=== PATIENT | male | born 1975 ===

== ENCOUNTER → 2021-04-23 13:17 | Outpatient (CLI) | payer OTHER, SELFPAY ==
[2021-04-23 17:42] LABS: COVID19 -Nasal RAPID Negative (Negative)
== END ==
PROVIDERS: Visit Provider Nurse Practitioner Family
DX: Z20.822 Contact with and (suspected) exposure to COVID-19 (principal)
CPT/HCPCS: 87635

== ENCOUNTER 2021-04-24 06:55 | Day surgery (SDC) | payer OTHER, SELFPAY ==
--- NOTE | 2021-04-24 | PATH_ITS ---
[facility] Accession Number: [id number] . 01 Material submitted: . small bowel - TERMINAL ILEUM POLYP . 01 Clinical history: . SDC . 02 Diagnosis: Terminal Ileum, Polyp, Biopsy: Ileal mucosa with reactive lymphoid hyperplasia. Negative for dysplasia or malignancy. [facility] 04/27/2021 1047 Local . 02 Electronically signed: . Leo Madrid MD, PhD, Pathologist NPI- [id number] . 01 Gross description: . TERMINAL ILEUM POLYP: Received in formalin are 2 fragment(s) of yeboah, soft tissue measuring 0.4 x 0.3 x 0.3 cm to 0.3 x 0.3 x 0.3 cm submitted entirely in 1 cassette(s) /Q 04/25/2021 0840 Local . 02 Pathologist provided ICD-10: Z12.11 . 02 CPT . 862300 Performed at: 01 [facility] [address] [facility], [place], [place] [id number] MD Shalom Munoz MD Phone: [phone] Performed at: 02 [facility] [address] [place], [place] [id number] MD Lori Torres MD Phone: [phone]
[2021-04-24 07:10] VITALS: BP 113/68; PULSE 64; RESP 16; TEMP 36.1; O2SAT 96; BMI 31.4
[2021-04-24] MEDS: SODIUM CHLORIDE 0.9% 1,000 ML 84 ML IV (07:27)
--- NOTE | 2021-04-24 07:51 | PM.HP.1 ---
History of Present Illness History of Present Illness Date Patient Seen: 04/24/21 Time Patient Seen: 07:51 Chief complaint: SDC Narrative: I reviewed Dr. Fagan's note. No major changes. Patient History Medical History Recurrent dislocation, left shoulder Surgical History H/O umbilical hernia repair Family & Social History Social History: household members spouse Tobacco & Substance use: Smoking Status Former smoker alcohol intake current Substance Use Type does not use Meds Home Medications and Allergies Home Medications Medication Instructions Recorded Confirmed Type esomeprazole magnesium 40 mg 40 mg PO QDAY #0 02/20/16 History capsule,delayed release (Nexium) multivitamin (Multiple Vitamins) 1 tab PO QDAY #0 tab 02/20/16 History Allergies Allergy/AdvReac Type Severity Reaction Status Date / Time gluten Allergy Verified 04/24/21 07:05 Review of Systems Review of Systems ROS: Yes All systems reviewed with the patient and are negative except as otherwise documented Exam Vital Signs (past 8 hours): - 04/24/21 07:10 Temperature 97 F L Pulse Rate 64 Respiratory Rate 16 Blood Pressure 113/68 Pulse Oximetry 96 Oxygen Delivery Method Room Air Const General: cooperative and comfortable Orientation: alert HENMT Head: normocephalic Ears: external ears normal Nose: external nose normal Face and sinus: normal facial exam Mouth: oral mucosae normal Eyes General: appearance normal, both eyes and all related structures Neck Neck: normal visual inspection Chest Chest: normal inspection of the chest Resp Effort & Inspection: normal respiratory effort Cardio Rate: regular rate GI Inspection: normal to inspection Skin General: no rashes or lesions noted and No jaundice Neuro General: patient alert and moves all extremities Cognition: normal cognition Speech: speech normal Extrem General: no pedal edema Psych Appearance: grossly normal Assessment & Plan Assessment & Plan narrative: 46-year-old male has been experiencing approximately 4 months of left-sided abdominal discomfort. He is indicated for colon cancer screening. Colonoscopy is pursued today. Time Spent With Patient Critical Care time: I spent a total of [] minutes of critical care time on this patient's care today; this time is exclusive of procedural time.
--- NOTE | 2021-04-24 07:55 | PM.PREOP ---
Pre-operative Note COVID-19 COVID-19 status: Negative Result date/Date tested (Pos, Neg/Pending): 04/23/21 Interval Note History & Physical reviewed/Exam performed by Physician: Yes Changes to H&P: No ASA Class (for procedural sedation): I
--- NOTE | 2021-04-24 08:18 | PM.OP.COLON ---
Operative Date/Time/Diagnoses Date of procedure: 04/24/21 Time of procedure: 08:19 Pre-op diagnosis: Left-sided abdominal pain x4 months indicated for colon cancer screening Post-op diagnosis: same Procedure & Clinicians Study performed: Colonoscopy with biopsies Same procedure as scheduled: Yes Indications: Colon cancer screening. Left-sided abdominal pain x4 months Surgeon: Andres Cody Procedure Notes SCOAP/Timeout: Done Procedure in detail: After the risks and benefits were explained, written and verbal informed consent was obtained. The patient was brought into the procedure room and placed into the left lateral decubitus position. Please see nurse teletypewriter installer sedation notes. Digital rectal examination was accomplished. The scope was introduced into the patient and advanced under direct visualization to the cecum as identified by the appendiceal orifice and ileocecal valve. The scope was slowly withdrawn to carefully examine the mucosa for any defects or lesions. Comprehensive imaging was accomplished throughout the rectum including the dentate line. The colon was decompressed, the scope was then removed from the patient who tolerated the procedure well. Adult colonoscope Bowel prep adequate Scope withdrawal time: 8 minutes Sedation minutes: 26 Complications: none Impression: Patient had a slightly challenging medication with some scope looping after the tip of the scope was navigated around splenic flexure. That said I did not see any sign of inflammation no obstructing pathology no significant polyps or mass lesions throughout. The terminal ileum was interrogated and appeared moderately nodular. Multiple biopsies were therefore acquired from the ileal mucosa for histopathologic analysis. Endoscopic diagnosis 1. Nodular terminal ileum 2. Otherwise visually unremarkable colonoscopy Post-procedure Plan for aftercare: 1. Await histopathology 2. Repeat colon cancer screening 10 years time. 3. No findings were identified today to account for the patient's left-sided symptoms. I would therefore recommend CT scan. Disposition: PACU
[2021-04-24 08:23] VITALS: BP 92/47; PULSE 61; RESP 12; TEMP 36.4; O2SAT 92
[2021-04-24 08:28] VITALS: BP 99/64; PULSE 64; RESP 14; O2SAT 92
[2021-04-24 08:32] VITALS: BP 102/67; PULSE 62; RESP 16; O2SAT 95
[2021-04-24 08:37] VITALS: BP 90/49; PULSE 711; RESP 4; O2SAT 95
[2021-04-24 08:45] VITALS: BP 113/68; PULSE 64; RESP 16; TEMP 36.1; O2SAT 97
== END 2021-04-24 08:55 | disposition home or self-care (01) ==
PROVIDERS: Referring Provider Internal Medicine Gastroenterology; Visit Provider Internal Medicine Gastroenterology
PROC: 0DJD8ZZ Inspection of Lower Intestinal Tract, Via Natural or Artificial Opening Endoscopic (ICD-10-PCS; CPT 45378; principal; 2021-04-24 08:00)
DX: R10.9 Unspecified abdominal pain (principal); K21.9 Gastro-esophageal reflux disease without esophagitis
CPT/HCPCS: 45378; J2704

== ENCOUNTER 2022-05-08 09:22 | Emergency (ER) | payer OTHER, SELFPAY ==
[2022-05-08 09:41] VITALS: BP 128/87; PULSE 71; RESP 15; TEMP 36.6; O2SAT 99; BMI 32.7
[2022-05-08] MEDS: predniSONE 20 MG TABLET 60 MG PO (10:00)
[2022-05-08] MEDS: diphenhydrAMINE 25 MG TABLET PO (10:00)
[2022-05-08 12:50] VITALS: BP 129/73; PULSE 73; RESP 18; O2SAT 98
--- NOTE | 2022-05-08 13:29 | ED_ITS ---
HPI - Allergic Reaction <CHUCKIE Kimball - Last Filed: 05/08/22 14:19> General Chief complaint: Allergic Reaction Stated complaint: Blisters on face Time Seen by Provider: 05/08/22 13:04 Source: patient Mode of arrival: Ambulatory History of Present Illness HPI narrative: This is a 47-year-old male who presents to the emergency department with symptoms of an allergic reaction with hives that started approximately 8 hours after he took meloxicam for the 1st time. States it was just prescribed to him for arthritic knee pain. He has tolerated ibuprofen in the past, he tolerates aspirin, states that he is gluten intolerant and has not allergy to gluten. States that his symptoms started approximately 7-8 hours afterwards with hives around his face denies any intraoral swelling, had hives on his arms and legs as well. Denies any shortness of breath, coughing, swelling of his mouth or lips. Denies history of allergy like this in the past. States that he took Benadryl last night in his symptoms approved but this morning he had hives return and they were on his whole-body. Patient denies taking any blood pressure medications including lisinopril. Known history of allergy to: Gluten Related Data Home Medications Medication Instructions Recorded Confirmed esomeprazole magnesium 40 mg 40 mg PO QDAY ##0 02/20/16 capsule,delayed release (Nexium) multivitamin (Multiple Vitamins 1 tab PO QDAY #0 tabs 02/20/16 tablet) Previous Rx's Medication Instructions Recorded cetirizine 10 mg tablet 20 mg PO BEDTIME #30 tabs 05/08/22 epinephrine 0.1 mg/0.1 mL 0.1 ml IM Q5-15M #2 ea 05/08/22 injection, auto-injector hydroxyzine HCl 25 mg tablet 25 mg PO TID PRN itching #20 tabs 05/08/22 Allergies Allergy/AdvReac Type Severity Reaction Status Date / Time gluten Allergy Verified 05/08/22 09:41 meloxicam Allergy Verified 05/08/22 09:41 Review of Systems <CHUCKIE Kimball - Last Filed: 05/08/22 14:19> Review of Systems ROS Unobtainable: All systems reviewed & are unremarkable except as noted in HPI and below Patient History <CHUCKIE Kimball - Last Filed: 05/08/22 14:19> Medical History Recurrent dislocation, left shoulder Surgical History H/O umbilical hernia repair Social History household members: spouse Smoking Status: Former smoker alcohol intake: current Smoking Status: Former smoker Substance Use Type: does not use Exam <CHUCKIE Kimball - Last Filed: 05/08/22 14:19> Narrative Exam Narrative: Reviewed vitals signs and nursing notes. General: cooperative, comfortable, in no acute distress, well groomed HEENT: symmetrical facial expressions, moist mucous membranes, no intraoral edema, no posterior pharynx edema, mild hives have resolved on his face and upper chest and arms, still mildly blotchy. Without pruritus, airway grossly patent Cardiovascular: regular rate and rhythm, no peripheral edema, warm extremities Respiratory: normal effort, able to speak in complete sentences, without wheezing, stridor, or abnormal breath sounds. No retractions or tachypnea. GI: abdomen soft, nontender to palpation, nondistended, without masses, rebound tenderness or exquisite tenderness with exam. Without nausea vomiting MSK: moves all extremities, neurovascularly intact, no weakness, normal tone Skin: brisk capillary refill, without pallor or erythema Neuro: normal speech and cognition, A&O x3, ambulatory, clear speech Psych: mental status is grossly normal, congruent mood, normal affect, pleasant and cooperative Initial Vital Signs Initial Vital Signs: Vital Signs Temperature 97.8 F 05/08/22 09:41 Pulse Rate 71 05/08/22 09:41 Respiratory Rate 15 05/08/22 09:41 Blood Pressure 128/87 05/08/22 09:41 Pulse Oximetry 99 05/08/22 09:41 Oxygen Delivery Method 05/08/22 09:41 <Caitlin Watson DO - Last Filed: 05/11/22 07:15> Initial Vital Signs Initial Vital Signs: Vital Signs Temperature 97.8 F 05/08/22 09:41 Pulse Rate 71 05/08/22 09:41 Respiratory Rate 15 05/08/22 09:41 Blood Pressure 128/87 05/08/22 09:41 Pulse Oximetry 99 05/08/22 09:41 Oxygen Delivery Method 05/08/22 09:41 Course <CHUCKIE Kimball - Last Filed: 05/08/22 14:19> Orders Ordered: Discontinued Medications Diphenhydramine HCl (Diphenhydramine 25 Mg Tablet) 25 mg PO NOW ONE Stop: 05/08/22 09:48 Last Admin: 05/08/22 10:00 Dose: 25 mg Documented By: DIANE Prednisone (Prednisone 20 Mg Tablet) 60 mg PO NOW ONE Stop: 05/08/22 09:48 Last Admin: 05/08/22 10:00 Dose: 60 mg Documented By: DIANE Vital Signs Vital signs: Vital Signs - 8 hr 05/08/22 09:41 05/08/22 12:50 Temperature 97.8 F Pulse Rate 71 73 Respiratory Rate 15 18 Blood Pressure 128/87 129/73 Pulse Oximetry 99 98 Oxygen Delivery Method Room Air Room Air <Caitlin Watson DO - Last Filed: 05/11/22 07:15> Orders Ordered: Discontinued Medications Diphenhydramine HCl (Diphenhydramine 25 Mg Tablet) 25 mg PO NOW ONE Stop: 05/08/22 09:48 Last Admin: 05/08/22 10:00 Dose: 25 mg Documented By: DIANE Prednisone (Prednisone 20 Mg Tablet) 60 mg PO NOW ONE Stop: 05/08/22 09:48 Last Admin: 05/08/22 10:00 Dose: 60 mg Documented By: DIANE Vital Signs Vital signs: Vital Signs - 8 hr 05/08/22 09:41 05/08/22 12:50 Temperature 97.8 F Pulse Rate 71 73 Respiratory Rate 15 18 Blood Pressure 128/87 129/73 Pulse Oximetry 99 98 Oxygen Delivery Method Room Air Room Air MDM - Allergic Reaction <CHUCKIE Kimball - Last Filed: 05/08/22 14:19> MDM Narrative Medical decision making narrative: This patient presents with symptoms consistent with acute hypersensitivity reaction, likely acute allergic reaction following meloxicam use for the 1st time. States that he has never had a medication in his class before and he does tolerate ibuprofen and aspirin without any allergy. He has history of allergy to gluten. Primary symptom was urticaria. Symptoms improved with Benadryl Presentation not consistent with acute anaphylaxis (lack of pulmonary, dermatologic, cardiovascular or GI symptoms, lack of hypotension or exposure to known allergen), angioedema, serum sickness (no recent drug exposure, lacks fevers, arthralgias). No evidence of airway compromise or shock at this time. Patient improved with H1/H2 blockers, steroids. No need for epinephrine. Prescribed patient EpiPen Rx, and patient to follow up with PMD for allergy testing. COVID PCR negative Patient is appropriate and amenable to discharge home. Vital signs are stable on repeat examination is unremarkable. Patient has been informed of results. Patient has been given strict return to ER precautions for any new or worsening symptoms. Patient understands to follow up closely with outpatient providers as instructed. Patient understands plan and agrees to discharge home. All questions and concerns answered at this time. Discharge Plan Departure Patient Disposition: Home Clinical Impression: Allergic reaction caused by a drug Qualifiers: Encounter type: initial encounter Qualified Code(s): T78.40XA - Allergy, unspecified, initial encounter Instructions: Hives, DI for Adverse Drug Reaction -- Allergic Activity Restrictions/Additional Instructions: *You have been diagnosed with an allergy to meloxicam. Hypersensitivity reactions that start like yours can last for 1-2 weeks but typically symptoms are greatly reduced after medications like you already received. Please use hydroxyzine as needed for hives during the daytime or itching, take Benadryl at night and stay hydrated. Please take Zyrtec nightly if you do not have hives for at least 2 weeks to prevent rebound urticaria. Return for worsening symptoms, shortness of breath, swelling to your mouth face or scratchy throat. Thank you for your patients today, I am glad your symptoms have improved. Please use caution with any anti-inflammatories, aspirin, or other allergens related to gluten. Please follow-up with your regular doctor and ask for an evaluation from Allergy and immunology. *What to do: *Please continue to take your regular medications as directed. [ x] New medication prescriptions sent to your pharmacy: [ DOD] [ ] New medication written as a paper prescription [ ] No new medications given *Please follow up with your primary care provider in 2-3 days, call for an appointment. Let them know you were seen in the Emergency Department and that we asked that you be seen for follow-up. We will electronically transmit a record of today's note if your PCP is in our system *If you do not have a primary care provider please contact [phone] to establish care with one of the [facility] primary care providers. *Return to Emergency Department if you should have any new, worsening, or concerning symptoms, such as [fever greater than 101F, chills, worsening pain, persistent vomiting or other bothersome symptoms]. Prescriptions: New epinephrine 0.1 mg/0.1 mL auto-injector 0.1 ml IM Q5-15M Qty: 2 0RF cetirizine 10 mg tablet 20 mg PO BEDTIME Qty: 30 0RF hydroxyzine HCl 25 mg tablet 25 mg PO TID PRN (Reason: itching) Qty: 20 0RF No Action multivitamin [Multiple Vitamins] 1 EACH tablet 1 tab PO QDAY Qty: 0 esomeprazole magnesium [Nexium] 40 MG capsule,delayed release(DR/EC) 40 mg PO QDAY Qty: 0 Referrals: Miscellaneous,Doctor, MD [Primary Care Provider] - Stand Alone Forms: Patient Portal/API <Caitlin Watson DO - Last Filed: 05/11/22 07:15> Cosign ED Attending Deisiature Attestation: I was immediately available in the department for consultation. Documentation has been reviewed. I agree with assessment and plan.
== END 2022-05-08 13:36 | disposition home or self-care (01) ==
PROVIDERS: Emergency Provider Nurse Practitioner Critical Care Medicine
DX: T78.40XA Allergy, unspecified, initial encounter (principal); L50.9 Urticaria, unspecified
CPT/HCPCS: 99283